=== PATIENT | male | born 1965 | race Two or more races ===

== ENCOUNTER 2021-05-30 05:36 | Day surgery (SDC) | payer OTHER ==
[~2021-05-30 05:36] MED LIST: ACID REDUCER20 M1 PO; ACTOS30 MG PO; CARVEDILOL3.125 MG; LIPITOR40 MG PO; SEGLUROMET 7.51 EAC1 PO; TRULICITY0.75 MG/0.
== END 2021-05-30 13:00 | disposition home or self-care (01) ==
LOC: CIR.AMB 05:36
PROVIDERS: ATTEND Surgery
DX: K80.10 Calculus of gallbladder with chronic cholecystitis without obstruction (principal); K42.0 Umbilical hernia with obstruction, without gangrene; I10 Essential (primary) hypertension; E11.9 Type 2 diabetes mellitus without complications; Z79.84 Long term (current) use of oral hypoglycemic drugs; J45.909 Unspecified asthma, uncomplicated; G47.33 Obstructive sleep apnea (adult) (pediatric); Z87.891 Personal history of nicotine dependence; Z99.89 Dependence on other enabling machines and devices; Z20.822 Contact with and (suspected) exposure to COVID-19